=== PATIENT | male | born 1990 ===

== ENCOUNTER 2021-10-23 05:59 | Day surgery (SDC) | payer BC, OTHER ==
[~2021-10-23 05:59] MED LIST: Midazolam 1 MG/ML 2 ML SDV ONE; fentaNYL 100 MCG/2 ML SDV ONE
[2021-10-23] MEDS ORDERED: Midazolam 1 MG/ML 2 ML SDV IV ONE ×7 (06:00→07:19)
[2021-10-23] MEDS ORDERED: Sodium Chloride 0.9% 10 ML Syringe FLUSH PRN (06:00)
[2021-10-23] MEDS ORDERED: fentaNYL 100 MCG/2 ML SDV IV ONE ×5 (06:00→07:24)
[2021-10-23] MEDS ORDERED: Dextrose 5%-0.45% NaCl 1,000 ML IV SCH (06:00)
--- NOTE | 2021-10-23 08:48 | OR ---
DATE: 10/23/2021 PROCEDURES: Total colonoscopy, narrow band imaging, and cold snare polypectomy. INSTRUMENT USED: PCF-H190DL Olympus video colonoscope. PREMEDICATIONS: Fentanyl 150 mcg intravenous, Versed 4 mg intravenous. The procedure was done under pulse oximetry, BP recording, and cardiac monitoring. INDICATION: The patient with persistent progressive constipation and rectal bleeding unexplained. Colonoscopic examination is done for detection of any polypoid lesions and removal, endoscopic hemostasis therapy if needed. DESCRIPTION OF PROCEDURE: Initial rectal exam was unremarkable. Rigid anoscopy showed small internal hemorrhoids without bleeding. The colonoscope was passed with ease. In the distal descending colon, small angiodysplastic area was noted without bleeding from it. NBI and magnification views were obtained. Photographs were taken. The scope was passed with ease up to the ileocecal area. Photographs were taken of the cecum showing a diminutive polyp. Cold snare polypectomy was done. The tissue was retrieved and sent for histopathology. No bleeding was noted from any of the visualized areas at the commencement of the examination. The bowel preparation was found to be moderately adequate. Some fecal material had to be aspirated. [place] scale 2 in right and left colon, 3 in transverse colon, total score 7. No stricture. No large isolated ulcerations seen. No evidence of diffuse inflammatory bowel disease in the form of friability, contact bleeding, or ulcerations. Probing the proximal sides of folds and flexures using adequate distention and clearing up the stool material, withdrawal of the scope was made, cecum to rectum time over 6 minutes. No bleeding was noted from any of the visualized areas at the completion of examination. IMPRESSION: 1. Internal hemorrhoids. 2. Angiodysplasia of descending colon. 3. Diminutive cecal polyp. The patient tolerated the procedure well. [facility] /[id number]
[2021-10-23 11:27] VITALS: BP 124/81; PULSE 73
== END 2021-10-23 09:42 | disposition home or self-care (01) ==
LOC: DL.ENDO 05:59
PROVIDERS: ATTEND Internal Medicine Gastroenterology
DX: D12.0 Benign neoplasm of cecum (principal); K64.8 Other hemorrhoids; K55.20 Angiodysplasia of colon without hemorrhage; Z86.16 Personal history of COVID-19; Z90.49 Acquired absence of other specified parts of digestive tract; Z98.890 Other specified postprocedural states; Z01.812 Encounter for preprocedural laboratory examination; Z20.822 Contact with and (suspected) exposure to COVID-19
CPT/HCPCS: 45385; 87635; J2250; J3010; J7042; U0002